=== PATIENT | female | born 2000 | race Hispanic/Latino ===

== ENCOUNTER 2019-02-09 23:39 | Emergency (ER) | payer OTHER ==
[2019-02-09] MEDS ORDERED: ZOFRAN ODT PO ONE (23:48)
[2019-02-09] MEDS ORDERED: NORCO 5/325 PO ONE (23:48)
[2019-02-09] MEDS ORDERED: IBUPROFEN PO ONE (23:48)
[2019-02-09 23:55] VITALS: BP 120/77
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
== END 2019-02-10 01:30 | disposition home or self-care (01) ==
LOC: ED 23:39
DX: S16.1XXA Strain of muscle, fascia and tendon at neck level, initial encounter (principal); V89.2XXA Person injured in unspecified motor-vehicle accident, traffic, initial encounter; Y93.89 Activity, other specified; Y92.488 Other paved roadways as the place of occurrence of the external cause; Y99.8 Other external cause status
CPT/HCPCS: 72040; 99283; Q0162